=== PATIENT | male | born 1930 | race Caucasian/White ===

== ENCOUNTER 2018-02-23 07:24 | Inpatient (IN) | payer MEDICARE, BC ==
[2018-02-19 10:55] LABS: BASOPHILS # (AUTO) 0.1 X10'3 (0-0.2); BASOPHILS % (AUTO) 0.6 % (0-1); EOSINOPHILS # (AUTO) 0.1 X10'3 (0-0.9); EOSINOPHILS % (AUTO) 1.5 % (0-6); LYMPHOCYTES # (AUTO) 1.7 X10'3 (1.1-4.8); LYMPHOCYTES % (AUTO) 19.4 % (21-51); MEAN CORPUSCULAR HEMOGLOBIN 31.3 PG (27.0-31.0); MEAN CORPUSCULAR HGB CONC 34.3 % (33.0-36.5); MEAN CORPUSCULAR VOLUME 91.2 FL (78-98); MEAN PLATELET VOLUME 7.9 FL (7.4-10.4); MONOCYTES # (AUTO) 0.9 X10'3 (0-0.9); MONOCYTES % (AUTO) 9.8 % (2-12); NEUTROPHILS % (AUTO) 68.7 % (42-75); PRE OP HEMATOCRIT 41.6 % (42.0-52.0); PRE OP HEMOGLOBIN 14.3 g/dL (14.0-17.9); PRE OP PLATELET COUNT 188 X10'3 (140-440); RED BLOOD COUNT 4.56 X10'6 (4.70-6.10); RED CELL DISTRIBUTION WIDTH 14.5 % (11.5-14.5)
[2018-02-19 11:06] LABS: PRE OP PROTIME 17.4 SECONDS (9.0-12.0)
[2018-02-19 11:14] LABS: PRE OP INR 1.7 INR
[2018-02-19 11:19] LABS: ALBUMIN 3.7 G/DL (3.4-5.0); ALKALINE PHOSPHATASE 37 IU/L (46-116); BLOOD UREA NITROGEN 27 MG/DL (7-18); BUN/CREATININE RATIO 23.1 (5.4-32.0); CALCIUM 8.5 MG/DL (8.5-10.1); CHLORIDE 101 MMOL/L (99-107); CREATININE 1.17 MG/DL (0.60-1.10); PRE OP ALT 28 U/L (30-65); PRE OP ANION GAP 7 (8-16); PRE OP AST 21 U/L (10-37); PRE OP BILIRUB, TOTAL 0.8 MG/DL (0.0-1.0); PRE OP GLUCOSE 101 MG/DL (70-104); PRE OP POTASSIUM 3.8 MMOL/L (3.4-5.1); PRE OP SODIUM 137 MMOL/L (135-145); TOTAL CARBON DIOXIDE 29.3 MMOL/L (24-32); TOTAL PROTEIN 7.4 G/DL (6.4-8.2); eGFR 59 ML/MIN
[2018-02-19 12:54] LABS: CLARITY,URINE CLEAR (Clear); COLOR,URINE YELLOW (Yellow); GLUCOSE, URINE NEGATIVE (Neg); KETONES,URINE NEGATIVE (Neg); LEUKOCYTE ESTERASE ,URINE NEGATIVE (Neg); NITRITES, URINE NEGATIVE (Neg); OCCULT BLOOD,URINE TRACE-INTACT (Neg); PH,URINE 6.5 (4.8-8.0); PROTEIN,URINE NEGATIVE (Neg); UROBILINOGEN,URINE 0.2 E.U/dL (0.2-1.0)
[2018-02-19 12:55] LABS: UA COLLECTION TYPE NON-SPECIFIED
[2018-02-19 13:09] LABS: BACTERIA,URINE NONE SEEN /HPF (Neg); RBC,URINE 0-2 /HPF (0-2); SQUAMOUS EPITHELIAL CELL,UR FEW /LPF (FEW); WBC,URINE 0-4 /HPF (0-4)
[2018-02-23] VITALS (20 sets, daily range): BP systolic 100–158; BP diastolic 56–89
[~2018-02-23] VITALS: Ht 172.7 cm; Wt 86.3 kg
[~2018-02-23 07:24] MED LIST: CALC1TAB5 PO; COU4T PO; CYAN100097 PO; Cefazolin 2GM/50ML dext iso,osmotic IVPB IV ONE; HYDROmorphone 1 mg/ml syringe IV PRN; HYDROmorphone inj. 0.5 MG/0.5 ML DISP.SYRIN IV PRN; LEVO100T78 PO; MAGN400C PO; OCUVITE PO; TRIA1CAP6 PO; acetaminophen 325mg tablet PO ONE; acetaminophen 325mg tablet PO PRN; bisacodyl 10mg suppository rectal RC PRN; celeCOXIB 100mg capsule PO ONE; diphenhydrAMINE 25mg capsule PO PRN; famotidine 20mg tablet PO ONE; gabapentin 300mg capsule PO ONE; magnesium hydroxide 30ml (MOM) UD suspension PO PRN; metoclopramide 5 mg/ml inj IV ONE; ondansetron/PF 4mg/2ml inj IV PRN; ringers solution, lacted 1,000 ML IV SCH; tranexamic acid inj. 1,000 MG in normal saline 100ml IV soln 90 ML IV ONE; vancomycin inj 1,500 MG in normal saline 300ml IV soln IV ONE
[2018-02-23] MEDS ORDERED: LIDOcaine 1% (10mg/ml) 2ml vial ONE (07:51)
[2018-02-23] MEDS ORDERED: [UNRECOGNIZED DRUG - OTHER] PO SCH (08:00)
[2018-02-23] MEDS ORDERED: levoTHYROXINE 100mcg tablet PO SCH (08:00)
[2018-02-23] MEDS ORDERED: ascorbic acid 500mg tablet PO SCH (08:00)
[2018-02-23] MEDS ORDERED: MAGNESIUM OXIDE PO SCH (08:00)
[2018-02-23] MEDS ORDERED: cefazolin/dext.iso 2gm/50ml 50 ML IV SCH (08:00)
[2018-02-23] MEDS ORDERED: warfarin 4mg tablet PO SCH (08:00)
[2018-02-23] MEDS ORDERED: multivitamins, therapeutics tablet PO SCH (08:00)
[2018-02-23 08:49] LABS: PRE OP PARTIAL THROMB. TIME 25 SECONDS (22-35); PROTHROMBIN TIME 10.7 SECONDS (9.0-12.0)
[2018-02-23] MEDS ORDERED: vancomycin 1,000mg inj ONE (09:47)
[2018-02-23] MEDS ORDERED: ketorolac trometh. 30mg/ml inj. ONE (09:47)
[2018-02-23] MEDS ORDERED: cloNIDine hcl/PF 100mcg/ml inj ONE (09:47)
[2018-02-23] MEDS ORDERED: epiNEPHrine 1 mg/ml inj ONE (09:47)
[2018-02-23] MEDS ORDERED: ROPIVAcaine 0.5% (5mg/ml) 30ml vial ONE ×2 (09:48→11:17)
[2018-02-23] MEDS ORDERED: sevoflurane 250ml liquid IH ONE (10:13)
[2018-02-23] MEDS ORDERED: fentaNYL /PF 50mcg/ml 5ml ampule ONE (10:20)
[2018-02-23] MEDS ORDERED: propofol inj 20 ML IV ONE (10:26)
[2018-02-23] MEDS ORDERED: LIDOcaine 2% (20mg/ml) 5ml vial ONE (10:26)
[2018-02-23] MEDS ORDERED: succinylcholine 20mg/ml inj IV ONE (10:26)
[2018-02-23] MEDS ORDERED: rocuronium 10mg/ml inj IV ONE (11:15)
[2018-02-23] MEDS ORDERED: dexamethasone sod phosphate 4mg/ml inj. ONE (11:17)
[2018-02-23] MEDS ORDERED: phenylephrine 10mg/ml inj. ONE (11:20)
[2018-02-23] MEDS ORDERED: ringers solution, lacted 1,000 ML IV SCH (11:22)
[2018-02-23] MEDS ORDERED: HYDROmorphone inj. 0.5 MG/0.5 ML DISP.SYRIN IV PRN (11:25)
[2018-02-23] MEDS ORDERED: ondansetron/PF 4mg/2ml inj IV PRN (11:25)
[2018-02-23] MEDS ORDERED: glycopyrrolate 0.2mg/ml inj ONE (12:00)
[2018-02-23] MEDS ORDERED: neostigmine methylsulfate 1 MG/ML 10ml vial ONE (12:28)
[2018-02-23] MEDS ORDERED: ondansetron/PF 4mg/2ml inj ONE (12:28)
[2018-02-23] MEDS: morphine 4 MG/ML inj SYRINge IV PRN ×3 (12:37→13:05)
[2018-02-23] MEDS ORDERED: HYDROmorphone 1 mg/ml syringe IV PRN ×2 (13:10→14:15)
[2018-02-23] MEDS: gabapentin 300mg capsule PO SCH ×3 (13:46→20:09)
[2018-02-23] MEDS ORDERED: magnesium oxide 400mg tablet PO SCH (14:03)
[2018-02-23] MEDS: HYDROcodone/acetaminophen 10/325mg tab PO PRN (14:04)
[2018-02-23] MEDS ORDERED: magnesium hydroxide 30ml (MOM) UD suspension PO PRN (14:15)
[2018-02-23] MEDS: potassium cl 20mEq in 1/2 NS 1,000 ML IV SCH ×2 (15:46→17:32)
[2018-02-23] MEDS: ceFAZolin 1GM/D5W- ADD-VANTAGE 50 ML IV SCH (15:47)
[2018-02-23] MEDS: sennosides 8.6mg tablet PO SCH (20:09)
[2018-02-23] MEDS: ascorbic acid 500mg tablet PO SCH (20:09)
[2018-02-23] MEDS: warfarin 3mg tablet PO SCH (20:09)
[2018-02-23] MEDS: celeCOXIB 100mg capsule PO SCH (20:09)
[2018-02-24] MEDS: ceFAZolin 1GM/D5W- ADD-VANTAGE 50 ML IV SCH (01:18)
[2018-02-24 02:00] VITALS: BP 124/75
[2018-02-24 05:00] VITALS: BP 128/72
[2018-02-24] MEDS: potassium cl 20mEq in 1/2 NS 1,000 ML IV SCH ×4 (05:45→22:54)
[2018-02-24] MEDS: HYDROcodone/acetaminophen 10/325mg tab PO PRN ×2 (05:47→14:57)
[2018-02-24 06:06] LABS: BASOPHILS # (AUTO) 0.1 X10'3 (0-0.2); BASOPHILS % (AUTO) 0.6 % (0-1); EOSINOPHILS # (AUTO) 0.1 X10'3 (0-0.9); EOSINOPHILS % (AUTO) 1.2 % (0-6); HEMATOCRIT 34.4 % (42.0-52.0); HEMOGLOBIN 12.2 g/dl (14.0-17.9); LYMPHOCYTES # (AUTO) 1.1 X10'3 (1.1-4.8); LYMPHOCYTES % (AUTO) 9.9 % (21-51); MEAN CORPUSCULAR HEMOGLOBIN 32.2 PG (27.0-31.0); MEAN CORPUSCULAR HGB CONC 35.4 % (33.0-36.5); MEAN CORPUSCULAR VOLUME 91.1 FL (78-98); MEAN PLATELET VOLUME 7.9 FL (7.4-10.4); MONOCYTES % (AUTO) 8.9 % (2-12); NEUTROPHILS # (AUTO) 8.5 X10'3 (1.8-7.7); NEUTROPHILS % (AUTO) 79.4 % (42-75); PLATELET COUNT 152 X10'3 (140-440); RED BLOOD COUNT 3.78 X10'6 (4.70-6.10); WHITE BLOOD COUNT 10.7 X10'3 (4.5-11.0)
[2018-02-24 06:11] LABS: PROTHROMBIN TIME 10.7 SECONDS (9.0-12.0)
[2018-02-24 06:12] LABS: ANION GAP 5 (8-16); CHLORIDE 102 MMOL/L (99-107); POTASSIUM 4.7 MMOL/L (3.5-5.1); SODIUM 135 MMOL/L (135-145); TOTAL CARBON DIOXIDE 28.2 MMOL/L (24-32)
[2018-02-24] MEDS: levoTHYROXINE 100mcg tablet PO SCH (07:29)
[2018-02-24] MEDS: celeCOXIB 100mg capsule PO SCH ×2 (07:29→19:58)
[2018-02-24] MEDS: multivitamins, therapeutics tablet PO SCH (07:30)
[2018-02-24] MEDS: triamterene/HCTZ 37.5/25mg tablet PO SCH (07:30)
[2018-02-24] MEDS: gabapentin 300mg capsule PO SCH ×3 (07:30→19:58)
[2018-02-24] MEDS: magnesium oxide 400mg tablet PO SCH (07:31)
[2018-02-24] MEDS: ascorbic acid 500mg tablet PO SCH ×2 (07:33→19:56)
[2018-02-24 10:00] VITALS: BP 106/56
[2018-02-24 14:10] VITALS: BP 124/56
[2018-02-24 18:00] VITALS: BP 143/69
[2018-02-24] MEDS: sennosides 8.6mg tablet PO SCH (19:58)
[2018-02-24] MEDS ORDERED: celeCOXIB 100mg capsule PO SCH (20:00)
[2018-02-24] MEDS: warfarin 3mg tablet PO SCH (20:02)
[2018-02-24 22:00] VITALS: BP 114/65
[2018-02-25] MEDS: HYDROcodone/acetaminophen 10/325mg tab PO PRN ×2 (05:25→13:02)
[2018-02-25 05:57] LABS: BASOPHILS % (AUTO) 0.4 % (0-1); EOSINOPHILS # (AUTO) 0.3 X10'3 (0-0.9); EOSINOPHILS % (AUTO) 2.6 % (0-6); HEMATOCRIT 32.5 % (42.0-52.0); LYMPHOCYTES # (AUTO) 1.1 X10'3 (1.1-4.8); MEAN CORPUSCULAR HEMOGLOBIN 30.9 PG (27.0-31.0); MEAN CORPUSCULAR HGB CONC 33.9 % (33.0-36.5); MEAN CORPUSCULAR VOLUME 91.2 FL (78-98); MEAN PLATELET VOLUME 7.9 FL (7.4-10.4); MONOCYTES # (AUTO) 1.2 X10'3 (0-0.9); NEUTROPHILS # (AUTO) 7.4 X10'3 (1.8-7.7); PLATELET COUNT 144 X10'3 (140-440); RED BLOOD COUNT 3.57 X10'6 (4.70-6.10); RED CELL DISTRIBUTION WIDTH 14.2 % (11.5-14.5)
[2018-02-25 06:00] VITALS: BP 142/82
[2018-02-25 06:01] LABS: INR 1.1 INR; PROTHROMBIN TIME 11.5 SECONDS (9.0-12.0)
[2018-02-25] MEDS: triamterene/HCTZ 37.5/25mg tablet PO SCH (07:57)
[2018-02-25] MEDS: celeCOXIB 100mg capsule PO SCH ×2 (07:57→20:07)
[2018-02-25] MEDS: multivitamins, therapeutics tablet PO SCH (07:57)
[2018-02-25] MEDS: magnesium oxide 400mg tablet PO SCH (07:57)
[2018-02-25] MEDS: gabapentin 300mg capsule PO SCH ×3 (07:57→20:07)
[2018-02-25] MEDS: levoTHYROXINE 100mcg tablet PO SCH (07:57)
[2018-02-25] MEDS: ascorbic acid 500mg tablet PO SCH ×2 (07:57→20:06)
[2018-02-25 10:00] VITALS: BP 104/46
[2018-02-25] MEDS: sennosides 8.6mg tablet PO SCH (20:07)
[2018-02-25] MEDS: warfarin 3mg tablet PO SCH (20:07)
[2018-02-25 22:00] VITALS: BP 111/48
[2018-02-26 05:21] LABS: BASOPHILS % (AUTO) 0.4 % (0-1); EOSINOPHILS # (AUTO) 0.3 X10'3 (0-0.9); EOSINOPHILS % (AUTO) 3.8 % (0-6); HEMATOCRIT 30.7 % (42.0-52.0); HEMOGLOBIN 10.4 g/dl (14.0-17.9); LYMPHOCYTES # (AUTO) 1.4 X10'3 (1.1-4.8); MEAN CORPUSCULAR HEMOGLOBIN 30.9 PG (27.0-31.0); MEAN CORPUSCULAR HGB CONC 33.7 % (33.0-36.5); MEAN CORPUSCULAR VOLUME 91.8 FL (78-98); MEAN PLATELET VOLUME 8.2 FL (7.4-10.4); MONOCYTES # (AUTO) 1.1 X10'3 (0-0.9); MONOCYTES % (AUTO) 13.1 % (2-12); NEUTROPHILS # (AUTO) 5.3 X10'3 (1.8-7.7); NEUTROPHILS % (AUTO) 65.7 % (42-75); PLATELET COUNT 141 X10'3 (140-440); RED BLOOD COUNT 3.35 X10'6 (4.70-6.10); RED CELL DISTRIBUTION WIDTH 14.3 % (11.5-14.5); WHITE BLOOD COUNT 8.1 X10'3 (4.5-11.0)
[2018-02-26 05:32] LABS: INR 1.2 INR; PROTHROMBIN TIME 12.2 SECONDS (9.0-12.0)
[2018-02-26 06:00] VITALS: BP 104/47
[2018-02-26] MEDS: triamterene/HCTZ 37.5/25mg tablet PO SCH (08:00)
[2018-02-26] MEDS: celeCOXIB 100mg capsule PO SCH (08:36)
[2018-02-26] MEDS: gabapentin 300mg capsule PO SCH ×2 (08:37→13:10)
[2018-02-26] MEDS: multivitamins, therapeutics tablet PO SCH (08:37)
[2018-02-26] MEDS: levoTHYROXINE 100mcg tablet PO SCH (08:37)
[2018-02-26] MEDS: magnesium oxide 400mg tablet PO SCH (08:37)
[2018-02-26] MEDS: ascorbic acid 500mg tablet PO SCH (08:37)
[2018-02-26 10:00] VITALS: BP 104/56
== END 2018-02-26 16:30 | DRG 470 ==
LOC: PAS IN 07:24 → EDSTATUS 10:00 → ORTHO 4S 13:35
PROVIDERS: ADMIT Orthopaedic Surgery; ATTEND Orthopaedic Surgery
PROC: 3E0T3BZ Introduction of Anesthetic Agent into Peripheral Nerves and Plexi, Percutaneous Approach (ICD-10-PCS; 2018-02-23)
PROC: 0SRC0J9 Replacement of Right Knee Joint with Synthetic Substitute, Cemented, Open Approach (ICD-10-PCS; principal; 2018-02-23 10:13)
DX: M17.0 Bilateral primary osteoarthritis of knee (principal); I10 Essential (primary) hypertension; M81.0 Age-related osteoporosis without current pathological fracture; M54.16 Radiculopathy, lumbar region; I25.10 Atherosclerotic heart disease of native coronary artery without angina pectoris; E66.9 Obesity, unspecified; I73.9 Peripheral vascular disease, unspecified; G62.9 Polyneuropathy, unspecified; Z79.01 Long term (current) use of anticoagulants; Z79.899 Other long term (current) drug therapy; Z68.28 Body mass index [BMI] 28.0-28.9, adult
CPT/HCPCS: 36415; 71046; 73560; 80051; 80053; 81001; 84443; 85025; 85610; 85730; 86885; 86900; 86901; 87070; 97110; 97116; 97161; 97530; A6449; A6455; A7000; C1713; C1758; C1776; J0171; J0330; J0690; J0735; J1100; J1885; J2001; J2270; J2370; J2405; J2704; J2710; J2765; J2795; J3010; J3370; J3490; J7030; J7120

== ENCOUNTER 2018-05-19 09:38 | Outpatient (CLI) | payer MEDICARE, BC ==
[~2018-05-19 09:38] MED LIST changes: -Cefazolin 2GM/50ML dext iso,osmotic IVPB IV ONE; -HYDROmorphone 1 mg/ml syringe IV PRN; -HYDROmorphone inj. 0.5 MG/0.5 ML DISP.SYRIN IV PRN; -acetaminophen 325mg tablet PO ONE; -acetaminophen 325mg tablet PO PRN; -bisacodyl 10mg suppository rectal RC PRN; -celeCOXIB 100mg capsule PO ONE; -diphenhydrAMINE 25mg capsule PO PRN; -famotidine 20mg tablet PO ONE; -gabapentin 300mg capsule PO ONE; -magnesium hydroxide 30ml (MOM) UD suspension PO PRN; -metoclopramide 5 mg/ml inj IV ONE; -ondansetron/PF 4mg/2ml inj IV PRN; -ringers solution, lacted 1,000 ML IV SCH; -tranexamic acid inj. 1,000 MG in normal saline 100ml IV soln 90 ML IV ONE; -vancomycin inj 1,500 MG in normal saline 300ml IV soln IV ONE
== END 2018-05-19 23:59 | disposition home or self-care (01) ==
LOC: PRE-OP 09:38 → EDSTATUS 05-25 11:00
PROVIDERS: ATTEND Orthopaedic Surgery
DX: Z01.818 Encounter for other preprocedural examination (principal); Z47.1 Aftercare following joint replacement surgery; M16.11 Unilateral primary osteoarthritis, right hip; I25.10 Atherosclerotic heart disease of native coronary artery without angina pectoris; I48.2 Chronic atrial fibrillation; I73.9 Peripheral vascular disease, unspecified; M17.12 Unilateral primary osteoarthritis, left knee; Z96.651 Presence of right artificial knee joint; I48.91 Unspecified atrial fibrillation; R60.0 Localized edema; Z79.01 Long term (current) use of anticoagulants; Z79.899 Other long term (current) drug therapy
CPT/HCPCS: 71046